=== PATIENT | male | born 1995 | race Caucasian/White ===

== ENCOUNTER 2020-07-16 20:57 | Emergency (ER) | payer OTHER ==
[~2020-07-16] VITALS: Ht 165.1 cm; Wt 69.4 kg
--- NOTE | 2020-07-16 22:01 | REPVR ---
PROCEDURE INFORMATION: Exam: US Scrotum and US Duplex Artery and Vein, Scrotum, Complete Exam date and time: 07/16/2020 9:48 PM Age: 24 years old Clinical indication: Scrotum pain; Additional info: R/O torsion TECHNIQUE: Imaging protocol: Real-time ultrasound of the scrotum. Real-time duplex ultrasound scan of the arterial and venous flow of the scrotum with B-mode, color Doppler flow and spectral waveform analysis. Complete exam. Duplex images required to evaluate vascular conditions. COMPARISON: No relevant prior studies available. FINDINGS: Right testicle: Right testis measures 4.1 x 2.5 x 3 cm. Approximately 2.6 cm complex hypervascular heterogeneous mass in the right testis. Numerous small echogenicities, most likely reflecting microlithiasis. Normal arterial waveforms on duplex color spectral Doppler analysis. Left testicle: Left testis measures 3.8 x 1.6 by 2.4 cm. Numerous small echogenicities, most likely reflecting microlithiasis. Normal arterial waveforms on duplex color spectral Doppler analysis. Epididymides: Approximately 0.2 cm anechoic right epididymal head cyst. Left epididymis is unremarkable. Scrotum: Unremarkable. IMPRESSION: 1. Approximately 2.6 cm complex hypervascular heterogeneous mass in the right testis, most concerning for right testicular abscess. Recommend urology consultation. 2. No evidence of testicular torsion. 3. Bilateral testicular microlithiasis. Electronically signed by: Malcolm Zaragoza On 07/16/2020 22:00:31 PM
[2020-07-16] MEDS ORDERED: NORCO, ANEXSIA 5/325MG TABLET (HYDROcodone/ACETAMINOPHEN) PO ONE (23:30)
[2020-07-17 00:03] LABS: APPEARANCE, URINE CLEAR (CLEAR); BACTERIA, URINE AUTO NEGATIVE (NEGATIVE); BILIRUBIN, URINE AUTO NEGATIVE (NEGATIVE); BLOOD, URINE BLOOD NEGATIVE (NEGATIVE); COLOR, URINE YELLOW (YELLOW); GLUCOSE, URINE (UA) AUTO NEGATIVE (NEGATIVE); KETONE, URINE AUTO NEGATIVE (NEGATIVE); LEUKOCYTE ESTERASE, URINE AUTO NEGATIVE (NEGATIVE); MUCUS, URINE SMALL (NEGATIVE); NITRITE, URINE AUTO NEGATIVE (NEGATIVE); PROTEIN, URINE AUTO NEGATIVE (NEGATIVE); RBC, URINE AUTO 2 /HPF (0-3); SPECIFIC GRAVITY URINE AUTO 1.024 (1.002-1.035); SQUAMOUS EPITHELIAL CELL UR AU 0 /HPF (0-6); UROBILINOGEN, URINE AUTO 0.2 mg/dL (0.0-2.0); WBC, URINE AUTO 0 /HPF (0-3)
[2020-07-17 00:08] LABS: BASO # 0.1 10^3/uL (0.0-0.2); BASO % 0.7 % (0.0-1.0); EOS # 0.1 10^3/uL (0.0-0.5); EOS % 1.9 % (0.0-3.0); HEMATOCRIT 44.9 % (42.0-52.0); HEMOGLOBIN 14.6 g/dl (13.5-17.5); LYMPH # 2.9 10^3/uL (1.5-5.0); LYMPH % 40.1 % (24.0-44.0); MEAN CORPUSCULAR HEMOGLOBIN 30.7 pg (27.0-33.0); MEAN CORPUSCULAR HGB CONC 32.5 g/dl (32.0-36.5); MEAN CORPUSCULAR VOLUME 94.3 fl (80.0-96.0); MONO # 0.7 10^3/uL (0.0-0.8); MONO % 9.7 % (0.0-5.0); NEUTROPHILS # 3.4 10^3/uL (1.5-8.5); NEUTROPHILS % 47.3 % (36.0-66.0); PLATELET COUNT, AUTOMATED 231 10^3/uL (150-450); RED BLOOD COUNT 4.76 10^6/uL (4.30-6.10); WHITE BLOOD COUNT 7.2 10^3/uL (4.0-10.0)
[2020-07-17] MEDS ORDERED: LIDOCAINE 1% SDV 5ML VIAL DILUENT ONE (00:45)
[2020-07-17] MEDS ORDERED: NORCO 5/325MG TABLET (BULK FOR ED) PO ONE (00:45)
[2020-07-17] MEDS ORDERED: cefTRIAXone SOD 1GM VIAL (J0696 PER 250MG) IM ONE (00:45)
[2020-07-17] MEDS ORDERED: BACT800T5 PO (00:47)
[2020-07-17] MEDS ORDERED: NAPR-837 PO (00:47)
[2020-07-17 02:23] VITALS: BP 143/78
== END 2020-07-17 02:27 | disposition home or self-care (01) ==
LOC: M ED 20:57
DX: N45.4 Abscess of epididymis or testis (principal); N50.89 Other specified disorders of the male genital organs
CPT/HCPCS: 36415; 76870; 81001; 85025; 87086; 93976; 96372; 99283; J0696

== ENCOUNTER → 2020-07-23 | Outpatient (CLI) | payer OTHER ==
[~2020-07-23] MED LIST: BACT800T5 PO; NAPR-837 PO; PERCOCET PO
== END ==
LOC: M LABSMTC 12:29
PROVIDERS: ATTEND Anesthesiology
DX: Z01.812 Encounter for preprocedural laboratory examination (principal); Z20.828 Contact with and (suspected) exposure to other viral communicable diseases
CPT/HCPCS: 80048; 82105; 84702; 85027; C9803; G0463; U0003

== ENCOUNTER → 2020-07-23 | Outpatient (REF) | payer OTHER ==
[2020-07-23 15:55] LABS: HEMATOCRIT 49.1 % (42.0-52.0); HEMOGLOBIN 16.3 g/dl (13.5-17.5); MEAN CORPUSCULAR HEMOGLOBIN 31.7 pg (27.0-33.0); MEAN CORPUSCULAR HGB CONC 33.2 g/dl (32.0-36.5); MEAN CORPUSCULAR VOLUME 95.3 fl (80.0-96.0); PLATELET COUNT, AUTOMATED 218 10^3/uL (150-450); RED BLOOD COUNT 5.15 10^6/uL (4.30-6.10); WHITE BLOOD COUNT 5.7 10^3/uL (4.0-10.0)
[2020-07-23 16:00] LABS: BLOOD UREA NITROGEN 23 MG/DL (7-18); CALCIUM LEVEL 9.4 MG/DL (8.5-10.1); CARBON DIOXIDE LEVEL 28 MEQ/L (21-32); CHLORIDE LEVEL 106 MEQ/L (98-107); CREATININE FOR GFR 1.11 MG/DL (0.70-1.30); GLOMERULAR FILTRATION RATE > 60.0 (>60); GLUCOSE, FASTING 73 MG/DL (70-100); POTASSIUM SERUM 4.5 MEQ/L (3.5-5.1); SODIUM LEVEL 138 MEQ/L (136-145)
== END ==
LOC: M LABSMT 12:41
PROVIDERS: ATTEND Urology
DX: N50.89 Other specified disorders of the male genital organs (principal)

== ENCOUNTER 2020-07-25 05:46 | Day surgery (SDC) | payer OTHER ==
[~2020-07-25] VITALS: Ht 165.1 cm; Wt 69.4 kg
[~2020-07-25 05:46] MED LIST changes: -PERCOCET PO
[2020-07-25] MEDS ORDERED: ceFAZolin SOD 2 GM in IV 1 EA IV ONE (06:00)
[2020-07-25] MEDS ORDERED: LIDOCAINE 1% MDV 20ML VIAL SQ PRN (06:00)
[2020-07-25] MEDS ORDERED: LR 1,000 ML IV ONE (06:00)
[2020-07-25] MEDS ORDERED: MIDAZOLAM INJ 2MG/2ML VIAL (J2250 PER 1MG) As Ordered ONE ×2 (07:02→07:49)
[2020-07-25] MEDS ORDERED: dexameTHASONE 4 MG/ML 1ML VIAL (J1100 PER 1MG) As Ordered ONE (07:02)
[2020-07-25] MEDS ORDERED: fentaNYL 250 MCG/5 ML INJECTION (J3010) As Ordered ONE (07:02)
[2020-07-25] MEDS ORDERED: ONDANSETRON 4MG/2ML VIAL As Ordered ONE ×2 (07:02→09:19)
[2020-07-25] MEDS ORDERED: propofoL 200 MG/20 ML VIAL As Ordered ONE (07:03)
[2020-07-25] MEDS ORDERED: LIDOCAINE 2% 100MG/5ML SDV (FOR ANES.) As Ordered ONE (07:03)
[2020-07-25] MEDS ORDERED: ACETAMINOPHEN 1000MG 100ML IV BTL (OFIRMEV) (J0131 PER 10MG) As Ordered ONE (07:06)
[2020-07-25] MEDS ORDERED: BUPIVACAINE HCL 0.25% 30ML VIAL As Ordered ONE (07:09)
[2020-07-25] MEDS ORDERED: BACITRACIN OINTMENT 30GM TUBE As Ordered ONE (07:09)
[2020-07-25] MEDS ORDERED: ePHEDrine SULFATE 25 MG/5 ML(5MG/ML) SYRINGE As Ordered ONE (07:49)
--- NOTE | 2020-07-25 09:16 | ROOPDOC ---
[facility] Report Of Operation Report of Operation DATE OF PROCEDURE: 07/25/20 PREPROCEDURE DIAGNOSIS: Right testicular mass. POSTPROCEDURE DIAGNOSIS: Right testicular mass. PROCEDURE: Right radical orchiectomy. SURGEON: Roberto Warren MD [employer] AIDE TEACHER: None. ANESTHESIA: General. OPERATIVE INDICATIONS: This is a 24 year-old male who was recently found to have a hypervascular mass in his right testicle, concerning for malignancy. It was recommended that he be brought to the operating room today for the above listed procedure. DESCRIPTION OF PROCEDURE: The patient was brought to the operating room where general anesthesia was induced. Prophylactic antibiotics were infused. He was then placed in the supine position and prepped and draped in the usual sterile fashion. At this point, a 4 cm incision was made in the skin overlying the right external ring. I then dissected down through the subcutaneous tissue. The external oblique fascia was then opened. The spermatic cord was identified and isolated. A Chana drain was wrapped around the cord. We then delivered the testicle into the wound. We then dissected off the Gubernacular fibers between the testicle and the skin until the testicle was completely free of the scrotal skin. We then dissected the spermatic cord proximally until we got to the level of the internal ring. At this point, a right angle clamp was placed on the cord. Just distal to the clamp, the cord was in two different packets and then two additional clamps were placed around these packets. The spermatic cord was then transected using scissors and then the right testicle and spermatic cord were delivered off the table to be sent for pathologic analysis. At this point, the two separate packets were ligated with #0 silk sutures and then they were cut long. Just proximal to the most proximal clamp, the spermatic cord was suture ligated with #0 silk suture. At this point, we checked hemostasis and hemostasis appeared excellent. We then closed the external oblique fascia with a running #2-0 Vicryl suture. The wound was then thoroughly irrigated and then the subcutaneous tissue was reapproximated with interrupted #2-0 chromic suture. The skin was then closed with a running #4-0 Monocryl subcuticular stitch. Local anesthetic was applied. Dermabond was applied. This marked conclusion of the procedure. The patient was then awakened from anesthesia, transported to the recovery room in stable condition. ESTIMATED BLOOD LOSS: 10mL. COMPLICATIONS: None. SPECIMENS: Right testicle and spermatic cord. PLAN: The patient will followup in the clinic in a week or two to discuss pathology results. ROBERTO WARREN MD Jul 25, 2020 09:15
[2020-07-25] MEDS ORDERED: oxyCODONE 5MG TAB As Ordered ONE (09:17)
[2020-07-25] MEDS ORDERED: oxyCODONE 5MG TAB PO PRN (09:30)
[2020-07-25] MEDS ORDERED: METOCLOPRAMIDE INJ 10MG/2ML VIAL (J2765 PER 1) IV PRN (09:30)
[2020-07-25] MEDS ORDERED: LR 1,000 ML IV SCH (09:30)
[2020-07-25] MEDS ORDERED: ONDANSETRON 4MG/2ML VIAL IV PRN (09:30)
[2020-07-25] MEDS ORDERED: MEPERIDINE INJ 25 MG/ML VIAL (J2175) IV PRN (09:30)
[2020-07-25] MEDS ORDERED: fentaNYL 100 MCG/2 ML INJECTION (J3010) IV PRN (09:30)
[2020-07-25] MEDS ORDERED: PERCOCET PO (09:32)
[2020-07-25] MEDS ORDERED: PERCOCET 5MG/325MG TAB PO PRN (10:30)
[2020-07-25 11:55] VITALS: BP 119/64
== END 2020-07-25 12:00 | disposition home or self-care (01) ==
LOC: M SDC 05:46
PROVIDERS: ATTEND Urology
DX: C62.91 Malignant neoplasm of right testis, unspecified whether descended or undescended (principal)
CPT/HCPCS: 54530; 88309; J0131; J0690; J1100; J2250; J2405; J3010

== ENCOUNTER → 2020-08-08 | Outpatient (CLI) | payer OTHER ==
[~2020-08-08] MED LIST changes: +ISOVUE-370 76% 100ML VIAL As Ordered ONE; +PERCOCET PO
--- NOTE | 2020-08-08 18:36 | REP ---
INDICATION: TESTICULAR CA, LOC. COMPARISON: None. TECHNIQUE: Pre and post-contrast enhanced helical scanning is acquired. 5 mm axial images are generated. Coronal MPR images are generated. The contrast enhancement dose is 100 mL of intravenous Isovue 370. FINDINGS: Bone window settings demonstrate intact bony calvarium. The visualized paranasal sinuses are clear. No intraorbital abnormality is appreciated. The lateral, 3rd, and 4th ventricles are normal in size and position. Mccartney-white differentiation pattern is normal above and below the tentorium. There is no evidence of intracranial hemorrhage, mass, extra-axial fluid collection, infarct or midline shift. Postcontrast enhanced images show enhancement in normal intracranial vasculature. No abnormal intracranial contrast enhancement is seen. There is no evidence to suggest skeletal metastatic disease. IMPRESSION: Normal brain CT without and with IV contrast. No evidence of intracranial metastasis. <Electronically signed by Francisco An > 08/08/20 [id number]
--- NOTE | 2020-08-08 18:42 | REP ---
INDICATION: TESTICULAR CA. COMPARISON: Comparison size sonography July 16, 2020.. TECHNIQUE: Helical scanning is acquired and 3 mm axial images re-formatted. Coronal and sagittal MPR images are generated. The CT contrast enhancement dose is 100 mL of intravenous Isovue 370. 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 Normal bowel gas pattern. The lung bases are clear on axial CT images. There is mild gynecomastia bilaterally. The liver and the spleen are normal in size homogeneous in texture. Normal adrenal glands are seen bilaterally. No abnormality is noted in the pancreas. The gallbladder is unremarkable. The kidneys enhance symmetrically and are morphologically intact. No retroperitoneal or mesenteric adenopathy is seen. There of few right lower quadrant normal-sized mesenteric lymph nodes. The largest of these measures 6 mm in short axis dimension by 14 mm by 7 mm. There is a normal-sized left periaortic lymph node 6.6 mm in short axis dimension. Normal appendix is noted. Pelvic CT images demonstrate and urinary bladder, prostate, and seminal vesicles are unremarkable. There is postoperative edema along the right inguinal region consistent with recent or worthy ectomy. No inguinal or pelvic adenopathy is seen. No free fluid is noted. No abdominal wall defect is seen. Bone window settings show no bony destructive lesion. IMPRESSION: Postoperative changes in the right inguinal soft tissues. No evidence of pelvic or abdominal mass or adenopathy. A few normal-sized lymph nodes are seen. <Electronically signed by Francisco An > 08/08/20 [id number]
== END ==
LOC: M RAD 17:01
PROVIDERS: ATTEND Nurse Practitioner Women's Health
DX: R40.20 Unspecified coma (principal); C62.90 Malignant neoplasm of unspecified testis, unspecified whether descended or undescended

== ENCOUNTER → 2020-08-12 | Outpatient (CLI) | payer OTHER ==
--- NOTE | 2020-08-13 16:20 | REP ---
INDICATION: TESTICULAR CANCER COMPARISON: None TECHNIQUE: Axial contrast enhanced images from the thoracic inlet to the upper abdomen with coronal and sagittal reformations using 75 ml Isovue 370 intravenous contrast material. [address] CT examination was performed using the following dose reduction techniques: Automated exposure control, adjustment of mA and/or kv according to the patient's size, and use of iterative reconstruction technique. FINDINGS: The bilateral lung hooks are well aerated and relatively clear. No consolidation, suspicious nodule or mass lesion is appreciated. No pleural effusion. No pneumothorax. Tracheobronchial tree is patent. No significant axillary, hilar, or mediastinal adenopathy noted. Thoracic aorta and pulmonary vasculature appear normal. Heart and pericardium appear normal. Surrounding musculoskeletal structures are intact and without acute osseous abnormality. Upper abdomen demonstrates normal bilateral adrenal glands. IMPRESSION: 1. No acute mediastinal or pleuroparenchymal process. Specifically, no evidence for metastatic disease. <Electronically signed by Haider Richey > 08/13/20 [id number]
== END ==
LOC: M RAD 16:47
PROVIDERS: ATTEND Nurse Practitioner Women's Health
DX: C62.90 Malignant neoplasm of unspecified testis, unspecified whether descended or undescended (principal)
CPT/HCPCS: 36415; 71260; 82105; 83615; 84702; G0463; Q9967

== ENCOUNTER → 2020-08-12 | Outpatient (REF) | payer OTHER ==
[~2020-08-12] MED LIST changes: -ISOVUE-370 76% 100ML VIAL As Ordered ONE
== END ==
LOC: M PLALAB 08:47
PROVIDERS: ATTEND Urology
DX: C62.90 Malignant neoplasm of unspecified testis, unspecified whether descended or undescended (principal)
CPT/HCPCS: 36415; 82105; 83615; 84702; G0463

== ENCOUNTER → 2020-11-26 | Outpatient (REF) | payer OTHER ==
[2020-11-26 18:15] LABS: LDH LACTATE DEHYDROGENASE 146 U/L (87-241)
== END ==
LOC: M LABSMT 16:49
PROVIDERS: ATTEND Urology
DX: C62.90 Malignant neoplasm of unspecified testis, unspecified whether descended or undescended (principal)
CPT/HCPCS: 36415; 82105; 83615; 84702; G0463

== ENCOUNTER → 2021-01-28 | Outpatient (CLI) | payer OTHER ==
[~2021-01-28] MED LIST changes: +ISOVUE-370 76% 100ML VIAL As Ordered ONE
--- NOTE | 2021-01-28 10:51 | REP ---
INDICATION: TESTICULAR CA COMPARISON: 08/08/2020. TECHNIQUE: CT Scan of the abdomen and pelvis was performed with intravenous administration of 100 cc of Isovue 370, without oral contrast. Sagittal and coronal reconstruction images are performed. FINDINGS: Lung bases: Unremarkable. Liver: There appears to be diffuse fatty infiltration of the liver. Gallbladder: Unremarkable. Spleen: Normal. Adrenals: Normal. Pancreas: Normal. Kidneys: Normal. Small and large bowel: Unremarkable. Free fluid: None. Abdominal aorta: No aneurysm or dissection. Adenopathy: None. Appendix: Not inflamed. Osseous structures: Unremarkable. Pelvis: No mass. There is postsurgical scarring in the right inguinal soft tissues. IMPRESSION: No adenopathy or mass in the abdomen or pelvis. There appears to be diffuse fatty infiltration of the liver. <Electronically signed by Tyler Mccartney > 01/28/21 [id number]
== END ==
LOC: M RAD 09:37
PROVIDERS: ATTEND Urology
DX: C62.90 Malignant neoplasm of unspecified testis, unspecified whether descended or undescended (principal)

== ENCOUNTER → 2021-02-13 | Outpatient (CLI) | payer OTHER ==
[~2021-02-13] MED LIST changes: -ISOVUE-370 76% 100ML VIAL As Ordered ONE
[2021-02-13 17:47] LABS: LDH LACTATE DEHYDROGENASE 175 U/L (87-241)
--- NOTE | 2021-02-14 07:40 | REP ---
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 TECHNIQUE: PA and lateral. FINDINGS: The mediastinum and cardiac silhouette are normal. The lung hooks are clear and without acute consolidation, effusion, or pneumothorax. The skeletal structures are intact and normal. IMPRESSION: No acute cardiopulmonary process. <Electronically signed by Haider Richey > 02/14/21 [id number]
== END ==
LOC: M LAB 16:46
PROVIDERS: ATTEND Urology
DX: C62.90 Malignant neoplasm of unspecified testis, unspecified whether descended or undescended (principal)

== ENCOUNTER → 2021-04-29 | Outpatient (CLI) | payer OTHER | LOC: M PLALAB 14:59 | PROVIDERS: ATTEND Urology | DX: C62.90 Malignant neoplasm of unspecified testis, unspecified whether descended or undescended (principal) ==

== ENCOUNTER 2021-05-13 14:30 | Emergency (ER) | payer OTHER ==
[~2021-05-13] VITALS: Ht 165.1 cm; Wt 70.4 kg
--- NOTE | 2021-05-13 15:58 | REP ---
INDICATION: trauma. COMPARISON: None. FINDINGS: The joint spaces are symmetric and relatively well maintained. There is no evidence of acute fracture or destructive osseous lesion. IMPRESSION: Negative. <Electronically signed by Reji Balderas > 05/13/21 [id number]
[2021-05-13 20:09] VITALS: BP 109/68
== END 2021-05-13 20:10 | disposition home or self-care (01) ==
LOC: M ED 14:30
DX: S93.501A Unspecified sprain of right great toe, initial encounter (principal); W34.011A Accidental discharge of paintball gun, initial encounter; Y92.9 Unspecified place or not applicable; Y93.9 Activity, unspecified; Y99.9 Unspecified external cause status; C62.91 Malignant neoplasm of right testis, unspecified whether descended or undescended

== ENCOUNTER → 2021-08-11 | Outpatient (CLI) | payer OTHER ==
[~2021-08-11] MED LIST changes: +ISOVUE-370 76% 100ML VIAL As Ordered ONE
--- NOTE | 2021-08-11 09:22 | REP ---
INDICATION: TESTICULAR CA. COMPARISON: 01/28/2021, 08/08/2020. TECHNIQUE: Bolus 100 mL Isovue 370 scanning through the abdomen pelvis with delayed scan the abdomen. Coronal and sagittal reconstructions provided. FINDINGS: CT abdomen: Lung bases are clear. Heart is not enlarged there is no pericardial thickening or effusion. There is no hiatal hernia. Diffuse low-density in the liver suggests some fatty infiltration. No hepatosplenomegaly, focal hepatic mass or intrahepatic biliary dilatation. Gallbladder without stone or mass. The pancreas is unremarkable. Adrenal glands are normal. Kidneys show symmetric enhancement without mass, cyst, stone or hydronephrosis. No perinephric edema. See no hydroureter or ureteral stone on either side. Abdominal aorta without aneurysm. There are a few small periaortic, retroperitoneal and mesenteric nodes which are of normal size. The largest is 5-6 mm in short axis. These are not considered pathologic by CT size criteria. Small bowel loops and abdominal portion of the colon were unremarkable. No ventral hernia. No abdominal wall mass. Bone windows show lumbar and lower thoracic spine as well as visualized ribs to be unremarkable. CT pelvis: Sacrum, SI joints, pelvis and hips were unremarkable. Of bladder is partially filled without mass, wall thickening or stone no dilated distal ureter or ureteral stone. Distal left colon, sigmoid and rectum unremarkable. Abdominal and pelvic portions of small bowel loops were intact. There are no inflammatory changes about the cecum or other signs of appendicitis. There is no ventral or inguinal hernia. Postsurgical changes in the right inguinal region are again noted. No pathologic sized inguinal or pelvic adenopathy. IMPRESSION: 1. Postsurgical changes in the right inguinal region from prior right orchiectomy. There is no abdominal or pelvic pathologic sized adenopathy, mass, ascites or other acute finding. 2. Colon, small bowel loops and stomach unremarkable. No inflammatory changes in the about the cecum or anywhere in the gastrointestinal tract. 3. Some fatty change in the liver again seen but no focal mass, biliary dilatation or ascites. 4. Bones intact. No calcified gallstones. No free air. Negative for any sign of metastatic disease. <Electronically signed by Davion Calero > 08/11/21 [id number]
== END ==
LOC: M RAD 08:30
PROVIDERS: ATTEND Urology
DX: C62.90 Malignant neoplasm of unspecified testis, unspecified whether descended or undescended (principal)

== ENCOUNTER 2022-01-28 11:19 | Emergency (ER) | payer OTHER ==
[~2022-01-28] VITALS: Ht 165.1 cm; Wt 74.7 kg
[~2022-01-28 11:19] MED LIST changes: -ISOVUE-370 76% 100ML VIAL As Ordered ONE
[2022-01-28] MEDS ORDERED: LEVO500T4 PO (14:14)
[2022-01-28 14:24] VITALS: BP 142/77
[2022-01-28 14:54] LABS: GC DNA AMPLIFICATION NEGATIVE (NEGATIVE)
== END 2022-01-28 14:27 | disposition home or self-care (01) ==
LOC: M ED 11:19
DX: N45.2 Orchitis (principal)